=== PATIENT | female | born 1955 | race Caucasian/White ===

== ENCOUNTER 2017-09-07 07:43 | Emergency (ER) | payer BC ==
[2017-09-07] MEDS ORDERED: FLUORESCEIN SODIUM 1 MG STRIP OP ONE (07:52)
[2017-09-07] MEDS ORDERED: PROPARACAINE 0.5% 15 ML OPHT DROP ONE (07:52)
[2017-09-07 07:57] VITALS: BP 135/91; PULSE 90; RESP 18; TEMP 97.9; O2SAT 96
--- NOTE | 2017-09-07 08:14 | EDPHY ---
H & P Time Seen by Provider: 09/07/17 07:49 HPI/ROS: HPI Left eye irritation. 62-year-old female by private vehicle. This patient was working with tiles yesterday evening. She thinks that a piece of tile chipped and got into her left eye. She denies any changes in vision but complains of a irritating feeling to her left eye. Described as a scratchiness. She wants to make sure she does not have a piece of tile chip in her eye. She does not wear contact lenses. No history of excessive UV light exposure. ROS: Constitutional: No fever, no chills. No weakness. Eyes: No discharge. No changes in vision. As above. Skin: No rashes. Neurological: No headache. Past medical history: Migraines insomnia hypertension back surgery. Social history: Nonsmoker. Here by herself. No alcohol. Physical Exam: General Appearance: Alert, no distress. She is reading a newspaper. She appears comfortable. This patient is responding to questions appropriately and in full sentences. This patient appears well-hydrated and well-nourished. Eyes: Pupils equal and round no pallor or injection. No lid edema, erythema or injection bilaterally. Left eye-[place] lamp exam with fluorescein staining; no David's sign, evidence of abrasion, ulceration or other abnormality. Slit- lamp exam; no hypopyon, no hyphema, anterior chamber is deep and clear, no cell/ flare. The upper and lower lids were everted with no gross evidence of foreign body. Neurological: Motor sensory function is grossly intact. Cranial nerves are normal. Gait is normal. Skin: Warm and dry, no rashes. Database: EKG: Imaging: Procedures: Emergency department course: Visual acuities are symmetrical and unremarkable. Vital signs reviewed. After my examination as above management plan was discussed. I discussed follow-up with Ophthalmology if symptoms are not improving. I do not feel that antibiotics are other medications are required at this time. She does not wear contact lenses. She is to return here for re-examination of her symptoms worsen. She feels comfortable with this plan. All of her questions were answered. She was discharged in good condition. Differential Diagnosis: The differential diagnosis on this patient includes but is not limited to evaluate for ocular foreign body. Ocular foreign body, UV keratitis, corneal abrasion, iritis, globe rupture unlikely. This represents a partial list of diagnoses considered. These considerations are based on history, physical exam , past history, reassessment and diagnostic testing. Smoking Status: Never smoked Constitutional: Initial Vital Signs Temperature (C) 36.6 C 09/07/17 07:54 Heart Rate 90 09/07/17 07:54 Respiratory Rate 18 09/07/17 07:54 Blood Pressure 135/91 H 09/07/17 07:54 O2 Sat (%) 96 09/07/17 07:54 O2 Delivery Mode Room Air Allergies/Adverse Reactions: codeine [Codeine] Allergy (Verified 09/07/17 07:53) Home Medications: Medication Instructions Recorded Nortriptilne 10/30/09 Ambien 09/01/16 Lisinopril 09/01/16 Departure - Departure Disposition: Home, Routine, Self-Care Clinical Impression: Irritation of left eye Condition: Good Instructions: Eye Foreign Body (ED) Additional Instructions: Read and follow provided instructions. Follow-up with Ophthalmology, as discussed if needed on Sunday. Most important, return to the emergency department for worsening irritation or pain to your left eye, swelling or inflammation of the eye, changes in vision or other serious concerns. Referrals: Reuben Cao MD [Medical Doctor] - As per Instructions
== END 2017-09-07 08:20 | disposition home or self-care (01) ==
LOC: CED 07:43
DX: H57.8 Other specified disorders of eye and adnexa (principal)

== ENCOUNTER → 2017-10-01 | Outpatient (CLI) | payer BC | LOC: FIMAGING 08:14 | PROVIDERS: ATTEND Family Medicine | DX: Z12.31 Encounter for screening mammogram for malignant neoplasm of breast (principal); Z13.820 Encounter for screening for osteoporosis; M81.0 Age-related osteoporosis without current pathological fracture | CPT/HCPCS: G0202 ==

== ENCOUNTER → 2019-01-14 | Outpatient (CLI) | payer BC | LOC: FIMAGING 07:32 | PROVIDERS: ATTEND Family Medicine | DX: Z12.31 Encounter for screening mammogram for malignant neoplasm of breast (principal); Z98.82 Breast implant status ==